=== PATIENT | female | born 1975 | race Caucasian/White ===

== ENCOUNTER 2024-05-08 00:30 | Emergency (ER) | payer MEDICARE, OTHER ==
[2024-05-08 00:39] VITALS: TEMP 98.6
--- NOTE | 2024-05-08 00:40 | ED ---
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 History is extremely limited as patient has baseline memory deficits. History is obtained from EMS and family. Family is concerned that patient may had her feeding tube that was recently placed less than 1 month ago at outside facility with concern for decreased oral intake after history of cardiac arrest. It is reported patient confusion and often does not remember location, personal details, or date. (Tammy Prescott) - Related Data Allergies Allergy/AdvReac Type Severity Reaction Status Date / Time Unable to Assess Allergy Verified 05/08/24 00:39 Review of Systems ROS Other: All systems not noted in ROS Statement are negative. <Tammy Prescott - Last Filed: 05/08/24 03:43> ROS Other: All systems not noted in ROS Statement are negative. <Bina Shore - Last Filed: 05/08/24 18:48> ROS Statement: Those systems with pertinent positive or pertinent negative responses have been documented in the HPI. Past Medical History Additional Past Medical History / Comment(s): Cardiac arrest Past Psychological History: Unable to Obtain Smoking Status: Unknown if ever smoked Past Alcohol Use History: Unable to Obtain Past Drug Use History: Unable to Obtain <Tammy Prescott - Last Filed: 05/08/24 03:43> General Exam General appearance: alert, in no apparent distress Eye exam: Present: normal appearance, PERRL, EOMI. Absent: scleral icterus, conjunctival injection, periorbital swelling ENT exam: Present: normal exam, mucous membranes moist Neck exam: Present: normal inspection. Absent: tenderness, meningismus, lymphadenopathy Respiratory exam: Present: normal lung sounds bilaterally. Absent: respiratory distress, wheezes, rales, rhonchi, stridor Cardiovascular Exam: Present: regular rate, normal rhythm, normal heart sounds. Absent: systolic murmur, diastolic murmur, rubs, gallop, clicks GI/Abdominal exam: Present: soft, normal bowel sounds. Absent: distended, tenderness, guarding, rebound, rigid Extremities exam: Present: normal inspection, full ROM, normal capillary refill. Absent: tenderness, pedal edema, joint swelling, calf tenderness <Tammy Prescott - Last Filed: 05/08/24 03:43> Course Vital Signs 05/08/24 05/08/24 05/08/24 00:33 02:26 04:00 Temperature 98.6 F Pulse Rate 101 H 89 93 Respiratory 18 18 Rate Blood Pressure 105/72 107/73 107/68 O2 Sat by Pulse 96 Oximetry 05/08/24 05/08/24 05/08/24 06:15 07:21 08:07 Temperature Pulse Rate 80 81 99 Respiratory 18 16 16 Rate Blood Pressure 122/77 96/83 O2 Sat by Pulse 99 100 Oximetry Medical Decision Making - Lab Data Result diagrams: 05/08/24 01:07 05/08/24 01:07 <Tammy Prescott - Last Filed: 05/08/24 03:43> - Lab Data Result diagrams: 05/08/24 01:07 05/08/24 01:07 <Bina Shore - Last Filed: 05/08/24 18:48> - Medical Decision Making Was pt. sent in by a medical professional or institution ([facility], [employer], urgent care, hospital, or intermediate...) When possible be specific @ -No Did you speak to anyone other than the patient for history (EMS, parent, family, police, friend...)? What history was obtained from this source @ -No Did you review nursing and triage notes (agree or disagree)? Why? @ -I reviewed and agree with nursing and triage notes Were old charts reviewed (outside hosp., previous admission, EMS record, old EKG, old radiological studies, urgent care reports/EKG's, intermediate records)? Report findings @ -No old charts were reviewed Differential Diagnosis (chest pain, altered mental status, abdominal pain women, abdominal pain men, vaginal bleeding, weakness, fever, dyspnea, syncope, headache, dizziness, GI bleed, back pain, seizure, CVA, palpatations, mental health, musculoskeletal)? @ -Feeding tube misplacement EKG interpreted by me (3pts min.). @ -none X-rays interpreted by me (1pt min.). @ -X-ray KUB reveals a percutaneous gastrostomy tube in position CT interpreted by me (1pt min.). @ -None done U/S interpreted by me (1pt. min.). @ -None done What testing was considered but not performed or refused? (CT, X-rays, U/S, labs)? Why? @ -None What meds were considered but not given or refused? Why? @ -None Did you discuss the management of the patient with other professionals (professionals i.e. Dr., PA, [employer], lab, RT, psych nurse, social welfare research worker, supervisor international reservations, teacher, correctional probation officer, case finisher)? Give summary @ -No Was smoking cessation discussed for >3mins.? @ -No Was critical care preformed (if so, how long)? @ -No Were there social determinants of health that impacted care today? How? (Homelessness, low income, unemployed, alcoholism, drug addiction, transportation, low edu. Level, literacy, decrease access to med. care, detention, rehab)? @ -No Was there de-escalation of care discussed even if they declined (Discuss DNR or withdrawal of care, Hospice)? DNR status @ -No What co-morbidities impacted this encounter? (DM, HTN, Smoking, COPD, CAD, Cancer, CVA, ARF, Chemo, Hep., AIDS, mental health diagnosis, sleep apnea, morbid obesity)? @ -None Was patient admitted / discharged? Hospital course, mention meds given and route, prescriptions, significant lab abnormalities, going to OR and other pertinent info. @ -discharged. 49-year-old female presenting with concern for feeding tube misplacement. History was large obtained from EMS report and family due to patient's baseline lab testing including CBC, CMP, coagulation troponin within normal. He reveals a percutaneous gastrostomy tube in position. Patient stable for discharge. Case discussed with Dr. Shore Undiagnosed new problem with uncertain prognosis? @ -No Drug Therapy requiring intensive monitoring for toxicity (Heparin, Nitro, Insulin, Cardizem)? @ -No Were any procedures done? @ -No Diagnosis/symptom? @ -Encounter for feeding tube assessment Acute, or Chronic, or Acute on Chronic? @ -acute Uncomplicated (without systemic symptoms) or Complicated (systemic symptoms)? @ -uncomplicated Side effects of treatment? @ -No Exacerbation, Progression, or Severe Exacerbation? @ -No Poses a threat to life or bodily function? How? (Chest pain, USA, [place], pneumonia, PE, COPD, DKA, ARF, appy, cholecystitis, CVA, Diverticulitis, Homicidal, Suicidal, threat to staff... and all critical care pts) @ -No (Tammy Prescott) Patient case presented to and signed out to myself from Tammy IZQUIERDO. Of note, on arrival I was alerted by RN for concern for stroke, as patient was dropped off by EMS without history beyond patient was brought in for concern for feeding tube displacement, lives with adult children, was recently discharge about 1 week ago from another hospital after a 3 week stay post cardiac arrest. Pt presents with left facial droop and mild dysarthria, is a poor historian and is oriented to self only. It is unclear if this is patient's baseline and there was no phone number left for contacting pt's family and nothing in our records.Out of an abundance of caution, a stroke alert was activated without last known well while [facility], who dropped the patient off, was contacted for additional history. While patient was being transported to CT scanner, I was able to reach [facility] and obtain phone numbers of pt's son, who confirmed that this is patient's baseline mental status since her recent hospitalization and she has a hx of Wu's palsy. Pt's daughter was also contacted who confirmed the same so stroke alert was cancelled. Pt does appear to have her G tube in appropriate position already, firmly in place, however, Tubogram was obtained, showed G tube in appropriate position. Pt set for discharge pending transportation home. While patient was awaiting transport, she attempted to get out of bed and had a fall witnessed by family member of another patient. Pt hit the back of her head without LOC. I was notified immediately by staff and on my assessment patient continued to be at her described baseline mental status, however CT brain/C spine was obtained and showed no acute process. Reviewed by myself, I saw no evidence of skull fracture or hemorrhage, no evidence of C spine fracture or malalignment, agree with radiologist interpretation. Treasure GILLIAM called and updated pt's family to this event. Patient remained stable and appropriate for discharge home via EMS. (Bina Shore) - Lab Data Lab Results 05/08/24 05/08/24 05/08/24 Range/Units 00:58 01:07 01:07 WBC 8.7 (3.8-10.6) k/uL RBC 3.95 (3.80-5.40) m/uL Hgb 12.2 (11.4-16.0) gm/dL Hct 36.3 (34.0-46.0) % MCV 91.9 (80.0-100.0) fL MCH 30.9 (25.0-35.0) pg MCHC 33.6 (31.0-37.0) g/dL RDW 13.8 (11.5-15.5) % Plt Count 261 (150-450) k/uL MPV 7.9 Neutrophils % 58 % Lymphocytes % 25 % Monocytes % 6 % Eosinophils % 9 % Basophils % 0 % Neutrophils # 5.1 (1.3-7.7) k/uL Lymphocytes # 2.2 (1.0-4.8) k/uL Monocytes # 0.6 (0-1.0) k/uL Eosinophils # 0.8 H (0-0.7) k/uL Basophils # 0.0 (0-0.2) k/uL PT 10.4 (10.0-12.5) sec INR 0.9 (<1.2) APTT 20.9 L (22.0-30.0) sec Sodium (137-145) mmol/L Potassium (3.5-5.1) mmol/L Chloride (98-107) mmol/L Carbon Dioxide (22-30) mmol/L Anion Gap mmol/L BUN (7-17) mg/dL Creatinine (0.52-1.04) mg/dL Est GFR (CKD-EPI)AfAm (>60 ml/min/1.73 sqM) Est GFR (CKD-EPI)NonAf (>60 ml/min/1.73 sqM) Glucose (74-99) mg/dL POC Glucose (mg/dL) 208 H (70-110) mg/dL POC Glu Farm Equipment Maintenance Supervisor ID Lorena Gonzalezsca Calcium (8.4-10.2) mg/dL Total Bilirubin (0.2-1.3) mg/dL AST (14-36) U/L ALT (4-34) U/L Alkaline Phosphatase (38-126) U/L Creatine Kinase (30-135) U/L Troponin I (0.000-0.034) ng/mL Total Protein (6.3-8.2) g/dL Albumin (3.5-5.0) g/dL 05/08/24 05/08/24 Range/Units 01:07 01:07 WBC (3.8-10.6) k/uL RBC (3.80-5.40) m/uL Hgb (11.4-16.0) gm/dL Hct (34.0-46.0) % MCV (80.0-100.0) fL MCH (25.0-35.0) pg MCHC (31.0-37.0) g/dL RDW (11.5-15.5) % Plt Count (150-450) k/uL MPV Neutrophils % % Lymphocytes % % Monocytes % % Eosinophils % % Basophils % % Neutrophils # (1.3-7.7) k/uL Lymphocytes # (1.0-4.8) k/uL Monocytes # (0-1.0) k/uL Eosinophils # (0-0.7) k/uL Basophils # (0-0.2) k/uL PT (10.0-12.5) sec INR (<1.2) APTT (22.0-30.0) sec Sodium 139 (137-145) mmol/L Potassium 5.1 (3.5-5.1) mmol/L Chloride 106 (98-107) mmol/L Carbon Dioxide 26 (22-30) mmol/L Anion Gap 7 mmol/L BUN 24 H (7-17) mg/dL Creatinine 0.58 (0.52-1.04) mg/dL Est GFR (CKD-EPI)AfAm >90 (>60 ml/min/1.73 sqM) Est GFR (CKD-EPI)NonAf >90 (>60 ml/min/1.73 sqM) Glucose 215 H (74-99) mg/dL POC Glucose (mg/dL) (70-110) mg/dL POC Glu Farm Equipment Maintenance Supervisor ID Calcium 8.7 (8.4-10.2) mg/dL Total Bilirubin 0.8 (0.2-1.3) mg/dL AST 67 H (14-36) U/L ALT 32 (4-34) U/L Alkaline Phosphatase 64 (38-126) U/L Creatine Kinase 164 H (30-135) U/L Troponin I <0.012 (0.000-0.034) ng/mL Total Protein 6.5 (6.3-8.2) g/dL Albumin 3.5 (3.5-5.0) g/dL Disposition Is patient prescribed a controlled substance at d/c from ED?: No Time of Disposition: 03:35 <Tammy Prescott - Last Filed: 05/08/24 03:43> <Bina Shore - Last Filed: 05/08/24 18:48> Clinical Impression: Encounter for attention to gastrostomy, Fall Disposition: HOME SELF-CARE Condition: Stable Additional Instructions: Please return to the Emergency Department if symptoms worsen or any other concerns. Please follow up with your general surgeon (whomever placed your feeding/G tube) as soon as possible for recheck Every disease is a spectrum and a small chance still exists that a serious condition could develop, for this reason, please monitor yourself closely for new, changing or worsening symptoms, inability to use feeding tube, changes in behavior, sudden onset confusion, seizures, severe headaches, vomiting, new weakness fever, inability to tolerate/keep down fluids or your medications, inability to follow up with outpatient providers as instructed and should you experience these symptoms or should you have any further concerns for your wellbeing please return to the ED or call 911 immediately. PLEASE call your primary care physician as soon as possible to arrange / discuss plan for followup appointment. Appointment in the next 1-3 days is strongly encouraged if possible. PLEASE let us know here before you leave if there is anything further we can do to be of any assistance. Take care and feel Better! Referrals: Aaron Vasquez MD [Primary Care Provider] - 1-2 days
[2024-05-08 01:02] LABS: Glucose,Whole Blood 208 mg/dL (70-110)
[2024-05-08 01:28] LABS: Basophils % (A) 0 %; Eosinophils # (A) 0.8 k/uL (0-0.7); Eosinophils % (A) 9 %; HCT 36.3 % (34.0-46.0); HGB 12.2 gm/dL (11.4-16.0); Lymphocytes # (A) 2.2 k/uL (1.0-4.8); Lymphocytes % (A) 25 %; MCH 30.9 pg (25.0-35.0); MCHC 33.6 g/dL (31.0-37.0); MCV 91.9 fL (80.0-100.0); Mean Platelet Volume 7.9; Monocytes # (A) 0.6 k/uL (0-1.0); Monocytes % (A) 6 %; Neutrophils # (A) 5.1 k/uL (1.3-7.7); Neutrophils % (A) 58 %; Platelet Count 261 k/uL (150-450); RBC 3.95 m/uL (3.80-5.40); RDW 13.8 % (11.5-15.5); WBC 8.7 k/uL (3.8-10.6)
[2024-05-08 01:37] LABS: ALT 32 U/L (4-34); AST 67 U/L (14-36); African American GFR (CKD) >90 (>60 ml/min/1.73 sqM); Albumin 3.5 g/dL (3.5-5.0); Alkaline Phosphatase 64 U/L (38-126); Anion Gap 7 mmol/L; Blood Urea Nitrogen 24 mg/dL (7-17); Calcium 8.7 mg/dL (8.4-10.2); Carbon Dioxide 26 mmol/L (22-30); Chloride 106 mmol/L (98-107); Creatine Kinase 164 U/L (30-135); Glucose 215 mg/dL (74-99); Non-African American GFR(CKD) >90 (>60 ml/min/1.73 sqM); Sodium 139 mmol/L (137-145); Total Bilirubin 0.8 mg/dL (0.2-1.3); Total Protein 6.5 g/dL (6.3-8.2)
[2024-05-08 01:45] LABS: INR 0.9 (<1.2); Prothrombin Time 10.4 sec (10.0-12.5)
[2024-05-08 01:56] LABS: Potassium 5.1 mmol/L (3.5-5.1)
[2024-05-08 02:21] LABS: Partial Thromboplastin Time 20.9 sec (22.0-30.0)
--- NOTE | 2024-05-08 03:27 | XR ---
EXAM: XR Abdomen, 1 View CLINICAL HISTORY: Feeding tube placement TECHNIQUE: Frontal supine view of the abdomen/pelvis. COMPARISON: No relevant prior studies available. FINDINGS: Gastrointestinal tract: Unremarkable. No dilation. Bones/joints: Unremarkable. No acute fracture. Tubes, lines and devices: A percutaneous gastrostomy tube is noted in the left upper quadrant. There is contrast in the tubing and minimal contrast in the fundus of the stomach. No obvious leakage. IMPRESSION: Percutaneous gastrostomy tube in position.
--- NOTE | 2024-05-08 07:02 | CT ---
EXAMINATION TYPE: CT brain jaspreet wo con DATE OF EXAM: 05/08/2024 COMPARISON: NONE CLINICAL INDICATION: Female, 49 years old with history of fall hit head, Fall from bed, hit head, nec k pain. TECHNIQUE: CT scan of the head and cervical spine are performed without contrast. CT DLP: 1528.8 mGycm. Automated Exposure Control for Dose Reduction was Utilized. FINDINGS: There is no acute intracranial hemorrhage, mass effect, or midline shift identified. The ventricles and sulci are within normal limits in size. Sierra-white matter differentiation is preserve d. The globes are intact and the visualized sinuses are clear. The calvarium is intact. Note is made of low-lying cerebellar tonsils extending greater than 5 mm inferior to the foramen magnum sagittal i mage 52. Lack of dentition is noted. Cervical spine is visualized in its entirety from C1 through upper thoracic levels and demonstrates s atisfactory alignment without evidence of acute fracture or dislocation. Prevertebral soft tissue ap pears within normal limits. The C1-C2 articulation is within normal limits on the coronal images. Ve rtebral body heights are maintained. Multilevel disc space narrowing with moderate to advanced findin gs C4-C5 through C6-C7 levels noted. Posterior spur disc complex and C6-C7 level effaces the anterior thecal sac. Thyroid gland appears within normal limits. Lung apices are clear without pneumothorax.. IMPRESSION: 1. There is no acute fracture or dislocation evident in the cervical spine. 2. No acute intracranial hemorrhage or midline shift is seen. 3. Incidental Chiari type I malformation. Consider neurology referral and MRI follow-up if this is no t known finding. [facility], , 05/08/2024 6:59 AM
[2024-05-08 07:23] VITALS: RESP 16
[2024-05-08 08:08] VITALS: BP 96/83; PULSE 99
== END 2024-05-08 08:09 | disposition home or self-care (01) ==
LOC: EC 00:30
DX: Z43.1 Encounter for attention to gastrostomy (principal); Z86.73 Personal history of transient ischemic attack (TIA), and cerebral infarction without residual deficits; Z86.74 Personal history of sudden cardiac arrest; W19.XXXA Unspecified fall, initial encounter
CPT/HCPCS: 36415; 70450; 72125; 74018; 80053; 82550; 84484; 85025; 85610; 85730; 99284

== ENCOUNTER 2024-05-21 10:07 | Emergency (ER) | payer MEDICARE, OTHER ==
[2024-05-21 10:33] VITALS: RESP 18; TEMP 98
--- NOTE | 2024-05-21 10:35 | ED ---
General Adult HPI - General Stated complaint: Pulled out feeding tube Time Seen by Provider: 05/21/24 10:12 Source: patient, EMS Mode of arrival: EMS Limitations: altered mental status - History of Present Illness Initial comments: Patient is a chronically altered 49-year-old female presenting to the emergency department with concern for pulling out her PEG tube. Patient is unable to provide reliable history. Patient states she does have a PEG tube. Patient is unaware if it may be pulled out or not. Patient has no pain or discomfort with it at this time. - Related Data Allergies Allergy/AdvReac Type Severity Reaction Status Date / Time Unable to Assess Allergy Verified 05/08/24 00:39 Review of Systems ROS Statement: Those systems with pertinent positive or pertinent negative responses have been documented in the HPI. ROS Other: All systems not noted in ROS Statement are negative. Constitutional: Denies: fever Eyes: Denies: eye pain ENT: Denies: ear pain Gastrointestinal: Reports: as per HPI Past Medical History Additional Past Medical History / Comment(s): Cardiac arrest Past Psychological History: Unable to Obtain Smoking Status: Unknown if ever smoked Past Alcohol Use History: Unable to Obtain Past Drug Use History: Unable to Obtain General Exam Limitations: no limitations General appearance: alert, in no apparent distress Head exam: Present: normocephalic Eye exam: Present: normal appearance Neck exam: Present: normal inspection Respiratory exam: Present: normal lung sounds bilaterally Cardiovascular Exam: Present: regular rate, normal rhythm GI/Abdominal exam: Present: soft, other (Patient does have PEG tube. PEG tube appears in place however retention ring is pulled back from the skin several inches). Absent: distended, tenderness Extremities exam: Present: normal inspection Back exam: Present: normal inspection Neurological exam: Present: alert Psychiatric exam: Present: normal affect, normal mood Skin exam: Present: normal color Course Vital Signs 05/21/24 10:18 Temperature 98.0 F Pulse Rate 79 Respiratory 18 Rate Blood Pressure 137/88 O2 Sat by Pulse 99 Oximetry Medical Decision Making - Medical Decision Making Retention ring is moved forward towards abdominal wall without difficulty. PEG tube is able to be flushed. Was pt. sent in by a medical professional or institution (, PA, SOFTWARE IMPLEMENTATION SPECIALIST, urgent care, hospital, or usp...) When possible be specific @ -No Did you speak to anyone other than the patient for history (EMS, parent, family, police, friend...)? What history was obtained from this source @ -EMS helps provide history as patient is a poor historian Did you review nursing and triage notes (agree or disagree)? Why? @ -I reviewed and agree with nursing and triage notes Were old charts reviewed (outside hosp., previous admission, EMS record, old EKG, old radiological studies, urgent care reports/EKG's, usp records)? Report findings @ -No old charts were reviewed Differential Diagnosis (chest pain, altered mental status, abdominal pain women, abdominal pain men, vaginal bleeding, weakness, fever, dyspnea, syncope, headache, dizziness, GI bleed, back pain, seizure, CVA, palpatations, mental health, musculoskeletal)? @ -Differential Abdominal Pain Women: Appendicitis, Cholecystitis, diverticulosis, ischemic bowel, pancreatitis, hepatitis, UTI, gastroenteritis, AAA, incarcerated hernia, bowel obstruction, constipation, inflammatory bowel, hepatitis, peptic ulcer disease, splenic infarction, perforated viscus, vulvitis, ovarian torsion, PID, kidney stone, placenta abruption, this is not meant to be an all-inclusive list EKG interpreted by me (3pts min.). @ -As above X-rays interpreted by me (1pt min.). @ -Abdominal x-ray shows satisfactory position of PEG tube with contrast provided CT interpreted by me (1pt min.). @ -None done U/S interpreted by me (1pt. min.). @ -None done What testing was considered but not performed or refused? (CT, X-rays, U/S, labs)? Why? @ -None What meds were considered but not given or refused? Why? @ -None Did you discuss the management of the patient with other professionals (professionals i.e. , PA, SOFTWARE IMPLEMENTATION SPECIALIST, lab, RT, psych nurse, social service director, newsagent, teacher, purchasing officer, upper caser)? Give summary @ -No Was smoking cessation discussed for >3mins.? @ -No Was critical care preformed (if so, how long)? @ -No Were there social determinants of health that impacted care today? How? (Homelessness, low income, unemployed, alcoholism, drug addiction, transportation, low edu. Level, literacy, decrease access to med. care, fci, rehab)? @ -No Was there de-escalation of care discussed even if they declined (Discuss DNR or withdrawal of care, Hospice)? DNR status @ -No What co-morbidities impacted this encounter? (DM, HTN, Smoking, COPD, CAD, Cancer, CVA, ARF, Chemo, Hep., AIDS, mental health diagnosis, sleep apnea, morbid obesity)? @ -None Was patient admitted / discharged? Hospital course, mention meds given and route, prescriptions, significant lab abnormalities, going to OR and other pertinent info. @ -Patient presents with concerns for function of PEG tube. Position confirmed with x-ray. PEG tube is functioning fine here. Patient will be discharged with recommended follow-up primary care physician. Undiagnosed new problem with uncertain prognosis? @ -No Drug Therapy requiring intensive monitoring for toxicity (Heparin, Nitro, Insulin, Cardizem)? @ -No Were any procedures done? @ -No Diagnosis/symptom? @ -PEG tube dysfunction Acute, or Chronic, or Acute on Chronic? @ -Acute Uncomplicated (without systemic symptoms) or Complicated (systemic symptoms)? @ -Default Side effects of treatment? @ -No Exacerbation, Progression, or Severe Exacerbation? @ -No Poses a threat to life or bodily function? How? (Chest pain, USA, [place], pneumonia, PE, COPD, DKA, ARF, appy, cholecystitis, CVA, Diverticulitis, Homicidal, Suicidal, threat to staff... and all critical care pts) @ -No Disposition Clinical Impression: PEG tube malfunction Disposition: HOME SELF-CARE Condition: Stable Instructions (If sedation given, give patient instructions): How to Use and Care for Your PEG Tube (ED) Additional Instructions: Please do follow-up with your primary care physician in the next couple of days for recheck. Return for problems using PEG tube, abdominal pain, fever vomiting, worsening symptoms or other concerns. Is patient prescribed a controlled substance at d/c from ED?: No Referrals: Aaron Vasquez MD [Primary Care Provider] - 1-2 days Time of Disposition: 11:40
--- NOTE | 2024-05-21 11:29 | XR ---
EXAMINATION TYPE: XR abdomen 1V DATE OF EXAM: 05/21/2024 11:02 AM COMPARISON: 05/08/2024 CLINICAL INDICATION: Female, 49 years old with history of w contrast for peg placement; [facility], pain TECHNIQUE: One radiographic view of the abdomen was obtained. The technologist administered 20 mL Iso marli 300 through the patient's PEG tube. FINDINGS: Air within right side of the colon and transverse colon. No dilated small bowel seen. There is contrast in injected through the patient's PEG tube with satisfactory opacification of the gastri c lumen. Surgical clips in the right upper quadrant. IMPRESSION: Satisfactory luminal opacification of the stomach after injection through the PEG tube. [facility], , 05/21/2024 11:26 AM
[2024-05-21 13:59] VITALS: BP 132/86; PULSE 80
== END 2024-05-21 13:35 | disposition home or self-care (01) ==
LOC: EC 10:07
DX: K94.23 Gastrostomy malfunction (principal)
CPT/HCPCS: 74018; 99283

== ENCOUNTER 2024-07-18 10:55 | Emergency (ER) | payer MEDICARE, OTHER ==
[2024-07-18 11:03] VITALS: RESP 18; TEMP 97.6
--- NOTE | 2024-07-18 11:15 | ED ---
General Adult HPI - General Chief complaint: Altered Mental Status Stated complaint: SOB, unable to walk Time Seen by Provider: 07/18/24 11:15 Source: patient, family, EMS, RN notes reviewed Mode of arrival: EMS - History of Present Illness Initial comments: This is a 49-year-old female with a history of seizures and anoxic brain injury presenting emergency department via EMS with concerns for altered mental status. Majority of history is provided from EMS report and family who is at bedside. Patient's son states that the patient lives with his sister, the patient's daughter, and this morning when the daughter helped to get the patient to use the bathroom states that she fell onto the ground was having a hard time walking. 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 Son reports that patient has been having increasing difficulty with ambulation over the past few months as she has been declining in her mobility. Patient currently states that she is feeling okay and is denying headache, visual disturbances, neck pain, chest pain, difficulty breathing, abdominal pain, weakness, dysphagia. - Related Data Allergies Allergy/AdvReac Type Severity Reaction Status Date / Time aspirin Allergy Unknown Verified 07/18/24 11:03 marijuana (cannabis) Allergy Unknown Verified 07/18/24 11:03 Penicillins Allergy Unknown Verified 07/18/24 11:03 Review of Systems ROS Statement: Those systems with pertinent positive or pertinent negative responses have been documented in the HPI. ROS Other: All systems not noted in ROS Statement are negative. Past Medical History Past Medical History: Asthma, Memory Impairment Additional Past Medical History / Comment(s): Cardiac arrest History of Any Multi-Drug Resistant Organisms: None Reported Past Surgical History: Section Additional Past Surgical History / Comment(s): PEG tube Past Psychological History: Anxiety, Depression Smoking Status: Never smoker, Unknown if ever smoked Past Alcohol Use History: None Reported Past Drug Use History: None Reported General Exam General appearance: alert, in no apparent distress Eye exam: Present: normal appearance, PERRL, EOMI. Absent: scleral icterus, conjunctival injection, periorbital swelling ENT exam: Present: normal exam, mucous membranes moist Neck exam: Present: normal inspection. Absent: tenderness, meningismus, lymphadenopathy Respiratory exam: Present: normal lung sounds bilaterally. Absent: respiratory distress, wheezes, rales, rhonchi, stridor Cardiovascular Exam: Present: regular rate, normal rhythm, normal heart sounds. Absent: systolic murmur, diastolic murmur, rubs, gallop, clicks GI/Abdominal exam: Present: soft, normal bowel sounds. Absent: distended, tenderness, guarding, rebound, rigid Extremities exam: Present: normal inspection, full ROM, normal capillary refill. Absent: tenderness, pedal edema, joint swelling, calf tenderness Back exam: Present: normal inspection Expanded Patient oriented to: Present: person, place Cranial nerves: EOM's Intact: Normal, Facial Sensation: Normal, Facial Palsy without Forehead Movement: Abnormal Left Cerebellar function: Finger to Nose: Normal, Heel to [place]: Normal, Romberg: Normal Sensory exam: Upper Extremity Light Touch: Normal, UE 2 Point Discrimination: Normal, Lower Extremity Light Touch: Normal Motor strength exam: RUE: 5, LUE: 5, RLE: 5, LLE: 5 Eye Response: (4) open spontaneously Motor Response: (6) obeys commands Verbal Response: (5) oriented Elida Total: 15 Psychiatric exam: Present: normal affect, normal mood Course Vital Signs 07/18/24 07/18/24 07/18/24 10:57 12:41 14:00 Temperature 97.6 F Pulse Rate 90 73 75 Respiratory 18 18 18 Rate Blood Pressure 115/80 123/88 132/89 O2 Sat by Pulse 97 99 99 Oximetry 07/18/24 07/18/24 15:00 16:26 Temperature Pulse Rate 70 71 Respiratory 18 18 Rate Blood Pressure 121/84 135/88 O2 Sat by Pulse 99 100 Oximetry Medical Decision Making - Medical Decision Making Was pt. sent in by a medical professional or institution (, PA, AIRCRAFT BODY REPAIRER, urgent care, hospital, or custodial...) When possible be specific @ -No Did you speak to anyone other than the patient for history (EMS, parent, family, police, friend...)? What history was obtained from this source @ -History was largely obtained from patient's son at bedside states that he reports the patient's daughter states that she was weak this morning. Did you review nursing and triage notes (agree or disagree)? Why? @ -I reviewed and agree with nursing and triage notes Were old charts reviewed (outside hosp., previous admission, EMS record, old EKG, old radiological studies, urgent care reports/EKG's, custodial records)? Report findings @ -No old charts were reviewed Differential Diagnosis (chest pain, altered mental status, abdominal pain women, abdominal pain men, vaginal bleeding, weakness, fever, dyspnea, syncope, headache, dizziness, GI bleed, back pain, seizure, CVA, palpatations, mental health, musculoskeletal)? @ -Differential Altered Mental Status: Hypoglycemia, DKA, hypercapnia, ETOH, overdose, CO poisoning, trauma, myxedema coma, HTN encephalopathy, infection, encephalitis, psychosis, intercranial hemorrhage, hepatic encephalopathy, meningitis, CVA, this is not meant to be an all-inclusive list EKG interpreted by me (3pts min.). @ -Completed at 1234 sinus rhythm with a ventricular rate of 76, TN interval 187, QRS 94, QT 372, QTc 402. X-rays interpreted by me (1pt min.). @ -chest xray no focal consolidation or plural effusions identified CT interpreted by me (1pt min.). @ -CT angio of the head and neck reveals no abnormality noted CT of the brain without contrast no acute bleed or mass effect, stable lacunar infarct in the left basal ganglia U/S interpreted by me (1pt. min.). @ -None done What testing was considered but not performed or refused? (CT, X-rays, U/S, labs)? Why? @ -None What meds were considered but not given or refused? Why? @ -None Did you discuss the management of the patient with other professionals (professionals i.e. , PA, AIRCRAFT BODY REPAIRER, lab, RT, psych nurse, social work coordinator, record tabulating clerk, teacher, corporate compliance officer, rehabilitation caseworker)? Give summary @ -No Was smoking cessation discussed for >3mins.? @ -No Was critical care preformed (if so, how long)? @ -No Were there social determinants of health that impacted care today? How? (Homelessness, low income, unemployed, alcoholism, drug addiction, hilario sportation, low edu. Level, literacy, decrease access to med. care, long-term, rehab)? @ -No Was there de-escalation of care discussed even if they declined (Discuss DNR or withdrawal of care, Hospice)? DNR status @ -No What co-morbidities impacted this encounter? (DM, HTN, Smoking, COPD, CAD, Cancer, CVA, ARF, Chemo, Hep., AIDS, mental health diagnosis, sleep apnea, morbid obesity)? @ -None Was patient admitted / discharged? Hospital course, mention meds given and route, prescriptions, significant lab abnormalities, going to OR and other pertinent info. @ Discharge. 49-year-old female presenting to emergency room via EMS for concerns of generalized weakness. Patient's initial vitals are stable and overall she is resting calmly examination bed no signs acute distress. Neurological examination completed with no acute focal neurological deficits. Patient does have noted left-sided mild facial paralysis consistent with previous diagnosis of Wu's palsy. Patient's forehead is not spared in this assessment. Patient is alert to person, place, date, and knows that she is in the hospital however does not know what city she is in. Patient has clinical signs of dehydration with dry mucous membranes on assessment is provided with IV fluids. Return testing is grossly within normal limits including CBC, CMP, urinalysis. EKG is in sinus rhythm. CT imaging of the brain without contrast and CTA of the head and neck no acute process identified. Patient stable for discharge with outpatient follow-up. case discussed with Dr. Gomez Undiagnosed new problem with uncertain prognosis? @ -No Drug Therapy requiring intensive monitoring for toxicity (Heparin, Nitro, Ins ulin, Cardizem)? @ -No Were any procedures done? @ -No Diagnosis/symptom? @ -possible TIA, generalized weakness Acute, or Chronic, or Acute on Chronic? @ -acute Uncomplicated (without systemic symptoms) or Complicated (systemic symptoms)? @ -uncomplicated Side effects of treatment? @ -No Exacerbation, Progression, or Severe Exacerbation? @ -No Poses a threat to life or bodily function? How? (Chest pain, [place], [place], pneumonia, PE, COPD, DKA, ARF, appy, cholecystitis, CVA, Diverticulitis, Homicidal, Suicidal, threat to staff... and all critical care pts) @ -No - Lab Data Result diagrams: 07/18/24 11:21 07/18/24 11:21 Lab Results 07/18/24 07/18/24 07/18/24 Range/Units 11:21 11:21 11:21 WBC 5.02 (4.50-10.00) 10*3/uL RBC 4.28 (4.10-5.20) 10*6/uL Hgb 13.0 (12.0-15.0) g/dL Hct 39.5 (37.2-46.3) % MCV 92.3 (80.0-97.0) fL MCH 30.4 (27.0-32.0) pg MCHC 32.9 (32.0-37.0) g/dL Plt Count 250 (140-440) 10*3/uL MPV 9.9 (9.5-12.2) fL Immature Gran % (Auto) 0.4 % Neutrophils % 61.9 % Lymphocytes % 22.7 % Monocytes % 10.6 % Eosinophils % 4.0 % Basophils % 0.4 % Immature Gran # 0.02 (0.00-0.04) 10*3/uL Neutrophils # 3.11 (1.80-7.70) 10*3/uL Lymphocytes # 1.14 (0.90-5.00) 10*3/uL Monocytes # 0.53 (0.20-1.00) 10*3/uL Eosinophils # 0.20 (0.04-0.35) 10*3/uL Basophils # 0.02 (0.00-0.10) 10*3/uL PT 10.9 (10.0-12.5) sec INR 1.0 (<1.2) APTT 21.7 L (22.0-30.0) sec Sodium 138 (137-145) mmol/L Potassium 4.4 (3.5-5.1) mmol/L Chloride 102 (98-107) mmol/L Carbon Dioxide 26 (22-30) mmol/L Anion Gap 10 mmol/L BUN 15 (7-17) mg/dL Creatinine 0.70 (0.52-1.04) mg/dL Est GFR (CKD-EPI)AfAm >90 (>60 ml/min/1.73 sqM) Est GFR (CKD-EPI)NonAf >90 (>60 ml/min/1.73 sqM) Glucose 150 H (74-99) mg/dL Calcium 9.1 (8.4-10.2) mg/dL Magnesium 2.0 (1.6-2.3) mg/dL Total Bilirubin 0.6 (0.2-1.3) mg/dL AST 40 H (14-36) U/L ALT 42 H (4-34) U/L Alkaline Phosphatase 109 (38-126) U/L Troponin I (0.000-0.034) ng/mL Total Protein 5.9 L (6.3-8.2) g/dL Albumin 3.5 (3.5-5.0) g/dL Urine Color Urine Appearance (Clear) Urine pH (5.0-8.0) Ur Specific [place] (1.001-1.035) Urine Protein (Negative) Urine Glucose (UA) (Negative) Urine Ketones (Negative) Urine Blood (Negative) Urine Nitrite (Negative) Urine Bilirubin (Negative) Urine Urobilinogen (<2.0) mg/dL Ur Leukocyte Esterase (Negative) Urine RBC (0-5) /hpf Urine WBC (0-5) /hpf Ur Squamous Epith Cells (0-4) /hpf Urine Mucus (None) /hpf 07/18/24 07/18/24 Range/Units 11:21 14:32 WBC (4.50-10.00) 10*3/uL RBC (4.10-5.20) 10*6/uL Hgb (12.0-15.0) g/dL Hct (37.2-46.3) % MCV (80.0-97.0) fL MCH (27.0-32.0) pg MCHC (32.0-37.0) g/dL Plt Count (140-440) 10*3/uL MPV (9.5-12.2) fL Immature Gran % (Auto) % Neutrophils % % Lymphocytes % % Monocytes % % Eosinophils % % Basophils % % Immature Gran # (0.00-0.04) 10*3/uL Neutrophils # (1.80-7.70) 10*3/uL Lymphocytes # (0.90-5.00) 10*3/uL Monocytes # (0.20-1.00) 10*3/uL Eosinophils # (0.04-0.35) 10*3/uL Basophils # (0.00-0.10) 10*3/uL PT (10.0-12.5) sec INR (<1.2) APTT (22.0-30.0) sec Sodium (137-145) mmol/L Potassium (3.5-5.1) mmol/L Chloride (98-107) mmol/L Carbon Dioxide (22-30) mmol/L Anion Gap mmol/L BUN (7-17) mg/dL Creatinine (0.52-1.04) mg/dL Est GFR (CKD-EPI)AfAm (>60 ml/min/1.73 sqM) Est GFR (CKD-EPI)NonAf (>60 ml/min/1.73 sqM) Glucose (74-99) mg/dL Calcium (8.4-10.2) mg/dL Magnesium (1.6-2.3) mg/dL Total Bilirubin (0.2-1.3) mg/dL AST (14-36) U/L ALT (4-34) U/L Alkaline Phosphatase (38-126) U/L Troponin I <0.012 (0.000-0.034) ng/mL Total Protein (6.3-8.2) g/dL Albumin (3.5-5.0) g/dL Urine Color Colorless Urine Appearance Cloudy H (Clear) Urine pH 7.0 (5.0-8.0) Ur Specific [place] >1.050 H (1.001-1.035) Urine Protein Negative (Negative) Urine Glucose (UA) Negative (Negative) Urine Ketones Negative (Negative) Urine Blood Negative (Negative) Urine Nitrite Negative (Negative) Urine Bilirubin Negative (Negative) Urine Urobilinogen 3.0 (<2.0) mg/dL Ur Leukocyte Esterase Small H (Negative) Urine RBC 3 (0-5) /hpf Urine WBC 3 (0-5) /hpf Ur Squamous Epith Cells 3 (0-4) /hpf Urine Mucus Rare H (None) /hpf Disposition Clinical Impression: Generalized muscle weakness, TIA (transient ischemic attack) Disposition: HOME SELF-CARE Condition: Stable Instructions (If sedation given, give patient instructions): Transient Ischemic Attack (ED) Additional Instructions: Please return to the Emergency Department if symptoms worsen or any other concerns. Is patient prescribed a controlled substance at d/c from ED?: No Referrals: Aaron Vasquez MD [Primary Care Provider] - 1-2 days Time of Disposition: 16:00
[2024-07-18 11:31] LABS: Basophils # (A) 0.02 10*3/uL (0.00-0.10); Basophils % (A) 0.4 %; HCT 39.5 % (37.2-46.3); Lymphocytes # (A) 1.14 10*3/uL (0.90-5.00); Lymphocytes % (A) 22.7 %; MCH 30.4 pg (27.0-32.0); MCHC 32.9 g/dL (32.0-37.0); MCV 92.3 fL (80.0-97.0); Mean Platelet Volume 9.9 fL (9.5-12.2); Monocytes # (A) 0.53 10*3/uL (0.20-1.00); Monocytes % (A) 10.6 %; Neutrophils # (A) 3.11 10*3/uL (1.80-7.70); Neutrophils % (A) 61.9 %; Platelet Count 250 10*3/uL (140-440); RBC 4.28 10*6/uL (4.10-5.20); RDW 13.3 % (11.5-14.5); WBC 5.02 10*3/uL (4.50-10.00)
[2024-07-18 11:55] LABS: ALT 42 U/L (4-34); AST 40 U/L (14-36); African American GFR (CKD) >90 (>60 ml/min/1.73 sqM); Albumin 3.5 g/dL (3.5-5.0); Alkaline Phosphatase 109 U/L (38-126); Anion Gap 10 mmol/L; Blood Urea Nitrogen 15 mg/dL (7-17); Calcium 9.1 mg/dL (8.4-10.2); Carbon Dioxide 26 mmol/L (22-30); Chloride 102 mmol/L (98-107); Glucose 150 mg/dL (74-99); Non-African American GFR(CKD) >90 (>60 ml/min/1.73 sqM); Partial Thromboplastin Time 21.7 sec (22.0-30.0); Potassium 4.4 mmol/L (3.5-5.1); Prothrombin Time 10.9 sec (10.0-12.5); Sodium 138 mmol/L (137-145); Total Bilirubin 0.6 mg/dL (0.2-1.3); Total Protein 5.9 g/dL (6.3-8.2)
[2024-07-18] MEDS: SODIUM CHLORIDE 0.9% 1,000 ML IV ONE (12:38)
--- NOTE | 2024-07-18 13:16 | CT ---
EXAMINATION TYPE: CT brain wo con DATE OF EXAM: 07/18/2024 COMPARISON: 05/08/2024 CLINICAL INDICATION: Female, 49 years old with history of AMS; PHH, AMS CT DLP: 1195.8 mGycm Automated exposure control for dose reduction was used. FINDINGS: The ventricles are moderately enlarged and the basal cisterns and sulci over convexities are mildly e nlarged. The findings are consistent with mild to moderate atrophy with greater central component There is a stable remote lacunar infarct in the left basal ganglia. There is no mass effect or shift of midline structures. There is no acute intra or extra-axial hemorrhage. IMPRESSION: 1. MILD TO MODERATE ATROPHY WITH GREATER CENTRAL COMPONENT. 2. STABLE LACUNAR INFARCT IN THE LEFT BASAL GANGLIA. 3. NO ACUTE BLEED OR MASS EFFECT. [facility], , 07/18/2024 1:14 PM
--- NOTE | 2024-07-18 13:49 | CT ---
EXAMINATION TYPE: CT angio head neck DATE OF EXAM: 07/18/2024 COMPARISON: None CLINICAL INDICATION: Female, 49 years old with history of AMS; PHH, AMS TECHNIQUE: CTA scan of the head and neck is performed without and with IV Contrast, patient injected with 65 ml mL of Isovue 370, axial images are obtained, coronal and sagittal reformatted images are reviewed. 3D reconstructed images are created on an independent workstation and reviewed. CT DLP: 628.[address] CTDI: mGy Automated exposure control for dose reduction was used. NASCET criteria was used in interpretation of this exam? FINDINGS: The brachiocephalic origins are widely patent and no significant stenosis. There is no significant stenosis of the common or internal carotid arteries within the neck. There is no stenosis of the vertebral arteries. Intracranially, there is no stenosis, segmental occlusion, sizable aneurysm sac or vascular malformat ion. IMPRESSION:. No significant abnormality seen. NASCET criteria was used in interpretation of this exam? [facility], , 07/18/2024 1:46 PM
[2024-07-18 14:56] LABS: Appearance,Urine Cloudy (Clear); Bilirubin,Urine Negative (Negative); Blood,Urine Negative (Negative); Color,Urine Colorless; Glucose,Urine (UA) Negative (Negative); Ketones,Urine Negative (Negative); Leukocyte Esterase,Urine Small (Negative); Mucus,Urine Rare /hpf; Nitrite,Urine Negative (Negative); Protein,Urine Negative (Negative); RBC,Urine 3 /hpf (0-5); Squamous Epithelial Cell,Urine 3 /hpf (0-4); WBC,Urine 3 /hpf (0-5)
[2024-07-18 15:19] LABS: Specific Gravity,Urine >1.050 (1.001-1.035)
[2024-07-18 16:28] VITALS: BP 135/88; PULSE 71
== END 2024-07-18 16:27 | disposition home or self-care (01) ==
LOC: EC 10:55
DX: G45.9 Transient cerebral ischemic attack, unspecified (principal); M62.81 Muscle weakness (generalized); Z88.0 Allergy status to penicillin; Z88.5 Allergy status to narcotic agent; Z88.8 Allergy status to other drugs, medicaments and biological substances
CPT/HCPCS: 36415; 93005; 80053; 83735; 84484; 85025; 85610; 85730; 81001; 71046; 70496; 70450; 70498; 99285; 96360; 96361; Q9967

== ENCOUNTER 2024-08-20 14:08 | Emergency (ER) | payer MEDICARE, OTHER ==
--- NOTE | 2024-08-20 14:58 | ED ---
General Adult HPI - General Chief complaint: Recheck/Abnormal Lab/Rx Stated complaint: Peg Tube Time Seen by Provider: 08/20/24 14:13 Source: patient, EMS, RN notes reviewed, old records reviewed Mode of arrival: EMS Limitations: no limitations - History of Present Illness Initial comments: 49-year-old female with history of anoxic brain injury presents with suspected PEG tube occlusion. The primary caregiver had noted that the PEG tube would not flush. There is been no vomiting. No fever. - Related Data Allergies Allergy/AdvReac Type Severity Reaction Status Date / Time aspirin Allergy Unknown Verified 08/20/24 14:15 marijuana (cannabis) Allergy Unknown Verified 08/20/24 14:15 Penicillins Allergy Unknown Verified 08/20/24 14:15 Review of Systems ROS Statement: Those systems with pertinent positive or pertinent negative responses have been documented in the HPI. ROS Other: All systems not noted in ROS Statement are negative. Past Medical History Past Medical History: Asthma, Memory Impairment, Seizure Disorder Additional Past Medical History / Comment(s): Cardiac arrest, epilepsy, anoxic brain injury History of Any Multi-Drug Resistant Organisms: None Reported Past Surgical History: Section Additional Past Surgical History / Comment(s): PEG tube Past Psychological History: Anxiety, Depression Smoking Status: Never smoker, Unknown if ever smoked Past Alcohol Use History: None Reported Past Drug Use History: None Reported General Exam Limitations: no limitations General appearance: alert Head exam: Present: atraumatic, normocephalic Respiratory exam: Present: normal lung sounds bilaterally. Absent: respiratory distress Cardiovascular Exam: Present: regular rate, normal rhythm GI/Abdominal exam: Present: soft, other (PEG tube flushes appropriately). Absent: distended Course Vital Signs 08/20/24 14:10 Temperature 98 F Pulse Rate 67 Respiratory 18 Rate Blood Pressure 118/72 O2 Sat by Pulse 98 Oximetry Medical Decision Making - Medical Decision Making Was pt. sent in by a medical professional or institution (, PA, RN LACTATION, urgent care, hospital, or half-way...) When possible be specific @ -No Did you speak to anyone other than the patient for history (EMS, parent, family, police, friend...)? What history was obtained from this source @ -No Did you review nursing and triage notes (agree or disagree)? Why? @ -I reviewed and agree with nursing and triage notes Were old charts reviewed (outside hosp., previous admission, EMS record, old EK G, old radiological studies, urgent care reports/EKG's, half-way records)? Report findings @ -No old charts were reviewed Differential Diagnosis suspected PEG tube occlusion EKG interpreted by me (3pts min.). @ -As above X-rays interpreted by me (1pt min.). @ -None done CT interpreted by me (1pt min.). @ -None done U/S interpreted by me (1pt. min.). @ -None done What testing was considered but not performed or refused? (CT, X-rays, U/S, labs)? Why? @ -None What meds were considered but not given or refused? Why? @ -None Did you discuss the management of the patient with other professionals (professionals i.e. , PA, RN LACTATION, lab, RT, psych nurse, hospice social worker, asphalt surface heater operator, teacher, airport operations officer, lining caser)? Give summary @ -No Was smoking cessation discussed for >3mins.? @ -No Was critical care preformed (if so, how long)? @ -No Were there social determinants of health that impacted care today? How? (Homelessness, low income, unemployed, alcoholism, drug addiction, transpor tation, low edu. Level, literacy, decrease access to med. care, halfway, rehab)? @ -No Was there de-escalation of care discussed even if they declined (Discuss DNR or withdrawal of care, Hospice)? DNR status @ -No What co-morbidities impacted this encounter? (DM, HTN, Smoking, COPD, CAD, Cancer, CVA, ARF, Chemo, Hep., AIDS, mental health diagnosis, sleep apnea, morbid obesity)? @ -PEG tube Was patient admitted / discharged? Hospital course, mention meds given and route, prescriptions, significant lab abnormalities, going to OR and other pertinent info. @ -[39-year-old with suspected occluded PEG tube. The occlusion is resolved when nursing was able to flush the PEG tube in the emergency department. PEG tube works properly without issue. Stable for discharge. Undiagnosed new problem with uncertain prognosis? @ -No Drug Therapy requiring intensive monitoring for toxicity (Heparin, Nitro, Insulin, Cardizem)? @ -No Were any procedures done? @ -No Diagnosis/symptom? @ -[PEG tube malfunction, resolved Acute, or Chronic, or Acute on Chronic? @ -Acute Uncomplicated (without systemic symptoms) or Complicated (systemic symptoms)? @ -Default Side effects of treatment? @ -No Exacerbation, Progression, or Severe Exacerbation? @ -No Poses a threat to life or bodily function? How? (Chest pain, [place], [place], pneumonia, PE, COPD, DKA, ARF, appy, cholecystitis, CVA, Diverticulitis, Homicidal, Suicidal, threat to staff... and all critical care pts) @ -No Disposition Clinical Impression: PEG tube malfunction Disposition: HOME SELF-CARE Condition: Fair Instructions (If sedation given, give patient instructions): How to Use and Care for Your PEG Tube (ED) Is patient prescribed a controlled substance at d/c from ED?: No Referrals: Aaron Vasquez MD [Primary Care Provider] - 1-2 days Time of Disposition: 14:57
[2024-08-20 15:56] VITALS: BP 127/82; PULSE 68; RESP 16; TEMP 98.1
== END 2024-08-20 17:13 | disposition home or self-care (01) ==
LOC: EC 14:08
DX: K94.23 Gastrostomy malfunction (principal); Z88.0 Allergy status to penicillin; Z88.6 Allergy status to analgesic agent; Z88.8 Allergy status to other drugs, medicaments and biological substances
CPT/HCPCS: 99283